=== PATIENT | female | born 1980 | race African-American/Black ===

== ENCOUNTER 2017-10-22 22:40 | Emergency (ER) | payer MEDICAID, OTHER ==
[~2017-10-22] VITALS: Ht 167.6 cm; Wt 63.6 kg
[~2017-10-22 22:40] MED LIST: BUSP5TAB20 PO; FERR-89 PO; FLUO-191 PO; LEVO125 PO; METF500T4 PO; PALI3 PO; VENL-193 PO
[2017-10-22] MEDS ORDERED: QUET50TA22 PO (23:01)
[2017-10-22] MEDS ORDERED: TEMA7.5C17 PO (23:01)
[2017-10-22] MEDS ORDERED: HYDR-4031 PO (23:01)
[2017-10-23 00:01] VITALS: BP 130/78
== END 2017-10-23 00:46 | disposition home or self-care (01) ==
LOC: EMS 22:42
DX: R45.851 Suicidal ideations (principal); F10.239 Alcohol dependence with withdrawal, unspecified; F19.90 Other psychoactive substance use, unspecified, uncomplicated; Z88.0 Allergy status to penicillin
CPT/HCPCS: 99285

== ENCOUNTER 2017-12-22 02:03 | Emergency (ER) | payer MEDICAID, OTHER ==
[~2017-12-22] VITALS: Ht 167.6 cm; Wt 63.6 kg
[~2017-12-22 02:03] MED LIST changes: +BUSP10TA23 PO; -BUSP5TAB20 PO; -FERR-89 PO; -LEVO125 PO; +LEVO125T95 PO; -METF500T4 PO; -PALI3 PO; +QUET50TA22 PO; -VENL-193 PO
[2017-12-22 02:50] LABS: BASOPHILS % (AUTO) 0.5 % (0.0-2.0); EOSINOPHILS % (AUTO) 0.7 % (1.0-6.0); HEMATOCRIT 34.4 % (36-46); HEMOGLOBIN 11.2 g/dL (12.0-16.0); LYMPHOCYTES # (AUTO) 2.3 K/uL (1.0-4.8); LYMPHOCYTES % (AUTO) 32.2 % (22.0-44.0); MEAN CORPUSCULAR HEMOGLOBIN 25.6 pg (26.0-34.0); MEAN CORPUSCULAR HGB CONC 32.6 G/dL (31.0-37.0); MEAN CORPUSCULAR VOLUME 79 fL (80-100); MONOCYTES # (AUTO) 0.5 K/uL (0.1-1.0); MONOCYTES % (AUTO) 6.9 % (2.0-9.0); NEUTROPHILS # (AUTO) 4.3 K/uL (1.8-7.7); NEUTROPHILS % (AUTO) 59.7 % (40.0-70.0); PLATELET COUNT (AUTO) 337 K/uL (150-450); RED BLOOD CELL COUNT(AUTO) 4.38 MIL/uL (4.00-5.20); RED CELL DISTRIBUTION WIDTH 18.1 % (11.5-14.5)
[2017-12-22 02:53] LABS: ANION GAP 12 mmol/L (8-16); CALCIUM, TOTAL 9.4 mg/dL (8.8-10.5); CARBON DIOXIDE 26 mmol/L (22-29); CHLORIDE 106 mmol/L (98-107); CREATININE 0.99 mg/dL (0.60-1.30); GLOMERULAR FILTR. RATE CALC > 60 mL/min (>60); GLUCOSE,RANDOM 110 mg/dL (70-110); POTASSIUM 3.9 mmol/L (3.5-5.1); SODIUM SERUM 144 mmol/L (136-145); UREA NITROGEN, BLOOD 6 mg/dL (7-18)
[2017-12-22 02:58] LABS: AMPHET/METH SCREEN,URINE NEGATIVE (NEGATIVE); BARBITURATE SCREEN, URINE NEGATIVE (NEGATIVE); BENZODIAZEPINES SCREEN,URINE POSITIVE (NEGATIVE); CANNABINOID SCREEN,URINE NEGATIVE (NEGATIVE); COCAINE SCREEN,URINE NEGATIVE (NEGATIVE); METHADONE SCREEN, URINE NEGATIVE (NEGATIVE); OPIATE SCREEN,URINE NEGATIVE (NEGATIVE); PHENCYCLIDINE SCREEN,URINE NEGATIVE (NEGATIVE)
[2017-12-22 02:59] LABS: ALANINE AMINOTRANSFERASE 178 U/L (12-78); ALBUMIN 3.5 g/dL (3.4-5.0); ALKALINE PHOSPHATASE 243 U/L (46-116); ASPARTATE AMINOTRANSFERASE 90 U/L (15-37); BILIRUBIN,TOTAL 0.2 mg/dL (0.1-1.0); TOTAL PROTEIN, SERUM 7.7 g/dL (6.4-8.2)
[2017-12-22] MEDS ORDERED: HALOPERIDOL LACTATE 5 MG/ML VIAL IM ONE (03:30)
[2017-12-22] MEDS ORDERED: DiphenhydrAMINE HCL 50 MG/ML VIAL IM ONE (03:30)
[2017-12-22 08:42] VITALS: BP 135/88
== END 2017-12-22 09:32 | disposition home or self-care (01) ==
LOC: EMS 02:04
DX: F31.9 Bipolar disorder, unspecified (principal); F20.9 Schizophrenia, unspecified; R45.851 Suicidal ideations; K70.30 Alcoholic cirrhosis of liver without ascites; F10.229 Alcohol dependence with intoxication, unspecified; F15.90 Other stimulant use, unspecified, uncomplicated; Y90.7 Blood alcohol level of 200-239 mg/100 ml; Z88.0 Allergy status to penicillin
CPT/HCPCS: 36415; 80053; 80307; 85025; 96372; 99285; G0480; J1200; J1630

== ENCOUNTER 2018-04-24 23:15 | Emergency (ER) | payer OTHER ==
[~2018-04-24] VITALS: Ht 167.6 cm; Wt 72.5 kg
[2018-04-25] MEDS ORDERED: GABA-531 PO ×2 (00:41→17:54)
[2018-04-25] MEDS ORDERED: LAMO100 PO ×2 (00:41→17:54)
[2018-04-25 03:48] VITALS: BP 135/81
[2018-04-25] MEDS ORDERED: MELA1TAB21 PO (17:54)
[2018-04-25] MEDS ORDERED: LEVO125 PO (17:54)
[2018-04-25] MEDS ORDERED: CALC-1038 PO (17:54)
[2018-04-25] MEDS ORDERED: FLUO-191 PO (17:54)
[2018-04-25] MEDS ORDERED: QUET300T2 PO (17:54)
[2018-04-25] MEDS ORDERED: BUSP10TA23 PO (17:54)
[2018-04-25] MEDS ORDERED: NICO-800 TD (17:54)
== END 2018-04-25 03:50 | disposition home or self-care (01) ==
LOC: EMS 23:16
DX: F32.9 Major depressive disorder, single episode, unspecified (principal); F20.9 Schizophrenia, unspecified; F15.10 Other stimulant abuse, uncomplicated; Z79.899 Other long term (current) drug therapy
CPT/HCPCS: 99285

== ENCOUNTER 2018-04-25 15:34 | Inpatient (IN) | payer MEDICAID ==
[~2018-04-25] VITALS: Ht 167.6 cm; Wt 75.8 kg
[~2018-04-25 15:34] MED LIST changes: +GABA-531 PO; +LAMO100 PO
[2018-04-25 16:07] VITALS: BP 130/79
[2018-04-25] MEDS ORDERED: CYANOCOBALAMIN 1,000 MCG/ML VIAL IM ONE (16:30)
[2018-04-25] MEDS ORDERED: ZOLPIDEM TARTRATE 10 MG TABLET PO PRN (16:30)
[2018-04-25] MEDS ORDERED: LORazepam 2 MG TABLET PO PRN (16:30)
[2018-04-25] MEDS ORDERED: HALOPERIDOL 5 MG TABLET PO PRN (16:30)
[2018-04-25] MEDS ORDERED: GuaiFENesin/D-METHORPHAN [SUGAR-FREE] 200-20MG/10 ML SYRUP UDCUP PO PRN (16:30)
[2018-04-25] MEDS ORDERED: ChlordiazePOXIDE HCL 25 MG CAPSULE PO PRN (16:30)
[2018-04-25] MEDS ORDERED: LOPERAMIDE HCL 2 MG CAPSULE PO PRN ×2 (16:30→18:15)
[2018-04-25 16:33] VITALS: BP 120/88
[2018-04-25 17:32] VITALS: BP 120/88
[2018-04-25 17:33] VITALS: BP 110/64
[2018-04-25] MEDS ORDERED: BUSP10TA23 PO (17:54)
[2018-04-25] MEDS ORDERED: LEVO125 PO (17:54)
[2018-04-25] MEDS ORDERED: QUET300T2 PO (17:54)
[2018-04-25] MEDS ORDERED: CALC-1038 PO (17:54)
[2018-04-25] MEDS ORDERED: GABA-531 PO (17:54)
[2018-04-25] MEDS ORDERED: NICO-800 TD (17:54)
[2018-04-25] MEDS ORDERED: LAMO100 PO (17:54)
[2018-04-25] MEDS ORDERED: FLUO-191 PO (17:54)
[2018-04-25] MEDS ORDERED: MELA1TAB21 PO (17:54)
[2018-04-25] MEDS: THIAMINE HCL 100 MG TABLET PO SCH (17:55)
[2018-04-25] MEDS ORDERED: DOCUSATE SODIUM 100 MG CAPSULE PO PRN (18:15)
[2018-04-25] MEDS: BACITRACIN 28.4 GM OINTMENT TP SCH (18:15)
[2018-04-25] MEDS ORDERED: CloNIDine HCL 0.1 MG TABLET PO PRN (18:15)
[2018-04-25] MEDS ORDERED: MAG HYDROX/AL HYDROX/SIMETH ES 30 ML SUSPENSION UDCUP PO PRN (18:15)
[2018-04-25] MEDS ORDERED: MAGNESIUM HYDROXIDE SUSPENSION 30 ML UDCUP PO PRN (18:15)
[2018-04-25] MEDS ORDERED: ONDANSETRON HCL 4 MG TABLET PO PRN (18:15)
[2018-04-25] MEDS ORDERED: ALBUTEROL SULFATE HFA 90 MCG/PUFF 8 GM INHALER IH PRN (18:15)
[2018-04-25] MEDS ORDERED: PETROLATUM,WHITE 71 GM JELLY TP PRN (18:15)
[2018-04-25] MEDS ORDERED: ACETAMINOPHEN 325 MG TABLET PO PRN (18:15)
[2018-04-25 18:33] VITALS: BP 121/77
[2018-04-25 19:33] VITALS: BP 148/88
[2018-04-26] VITALS (8 sets, daily range): BP systolic 118–134; BP diastolic 74–81
[2018-04-26] MEDS ORDERED: ChlordiazePOXIDE HCL 25 MG CAPSULE PO PRN (07:00)
[2018-04-26] MEDS: THIAMINE HCL 100 MG TABLET PO SCH ×2 (08:45→16:15)
[2018-04-26] MEDS: FOLIC ACID 1 MG TABLET PO SCH (08:45)
[2018-04-26] MEDS: MULTIVITAMINS WITH MINERALS, THERAPEUTIC TABLET PO SCH (08:45)
[2018-04-26] MEDS: ChlordiazePOXIDE HCL 25 MG CAPSULE PO SCH ×4 (08:45→21:09)
[2018-04-26] MEDS: NICOTINE 14 MG/24 HOUR PATCH TD SCH (08:46)
[2018-04-26] MEDS: BACITRACIN 28.4 GM OINTMENT TP SCH ×2 (08:46→16:15)
[2018-04-26] MEDS: LamoTRIgine 100 MG TABLET PO SCH (10:24)
[2018-04-26] MEDS: FLUoxetine HCL 20 MG CAPSULE PO SCH (10:24)
[2018-04-26] MEDS: BusPIRone HCL 10 MG TABLET PO SCH ×2 (10:25→21:09)
[2018-04-26] MEDS: CALCIUM OYSTER SHELL 500 MG TABLET PO SCH (16:15)
[2018-04-26] MEDS: IBUPROFEN 400 MG TABLET PO PRN (17:06)
[2018-04-26] MEDS ORDERED: [UNRECOGNIZED DRUG - OTHER] PO SCH (21:00)
[2018-04-26] MEDS: QUEtiapine FUMARATE 100 MG TABLET PO SCH (21:09)
[2018-04-27 04:17] VITALS: BP 128/71
[2018-04-27 04:18] VITALS: BP 128/71
[2018-04-27] MEDS: HydrOXYzine PAMOATE 50 MG CAPSULE PO PRN ×2 (04:20→16:09)
[2018-04-27] MEDS: LEVOTHYROXINE SODIUM 125 MCG TABLET PO SCH (06:40)
[2018-04-27 07:26] LABS: BASOPHILS % (AUTO) 0.9 % (0.0-2.0); HEMATOCRIT 32.5 % (36-46); HEMOGLOBIN 10.4 g/dL (12.0-16.0); LYMPHOCYTES % (AUTO) 34.7 % (22.0-44.0); MEAN CORPUSCULAR HEMOGLOBIN 24.1 pg (26.0-34.0); MEAN CORPUSCULAR HGB CONC 31.9 G/dL (31.0-37.0); MEAN CORPUSCULAR VOLUME 76 fL (80-100); MONOCYTES # (AUTO) 0.3 K/uL (0.1-1.0); MONOCYTES % (AUTO) 5.2 % (2.0-9.0); NEUTROPHILS # (AUTO) 3.4 K/uL (1.8-7.7); NEUTROPHILS % (AUTO) 58.2 % (40.0-70.0); PLATELET COUNT (AUTO) 267 K/uL (150-450); RED BLOOD CELL COUNT(AUTO) 4.31 MIL/uL (4.00-5.20); RED CELL DISTRIBUTION WIDTH 19.5 % (11.5-14.5)
[2018-04-27 07:54] LABS: ALANINE AMINOTRANSFERASE 188 U/L (12-78); ALBUMIN 3.1 g/dL (3.4-5.0); ALKALINE PHOSPHATASE 110 U/L (46-116); ANION GAP 7 mmol/L (8-16); ASPARTATE AMINOTRANSFERASE 90 U/L (15-37); BILIRUBIN,TOTAL 0.3 mg/dL (0.1-1.0); CALCIUM, TOTAL 8.4 mg/dL (8.8-10.5); CARBON DIOXIDE 26 mmol/L (22-29); CHLORIDE 106 mmol/L (98-107); CHOL/HDL RATIO 1.8 (3.9-5.7); CHOLESTEROL 168 mg/dL (131-200); CREATININE 0.83 mg/dL (0.60-1.30); FREE T4 (FREE THYROXINE) 0.61 ng/dL (0.76-1.46); GLOMERULAR FILTR. RATE CALC > 60 mL/min (>60); GLUCOSE,RANDOM 108 mg/dL (70-110); HDL CHOLESTEROL 91 mg/dL (40-60); LDL CHOL (CALC.) 62 mg/dL (0-130); POTASSIUM 3.9 mmol/L (3.5-5.1); SODIUM SERUM 139 mmol/L (136-145); THYROID STIMULATING HORMONE 0.54 uIU/mL (0.36-3.74); TOTAL PROTEIN, SERUM 6.3 g/dL (6.4-8.2); TRIGLYCERIDES 74 mg/dL (15-150); UREA NITROGEN, BLOOD 16 mg/dL (7-18)
[2018-04-27 08:40] VITALS: BP 109/59
[2018-04-27 08:45] VITALS: BP 109/91
[2018-04-27] MEDS: BusPIRone HCL 10 MG TABLET PO SCH ×2 (09:35→20:45)
[2018-04-27] MEDS: NICOTINE 14 MG/24 HOUR PATCH TD SCH (09:35)
[2018-04-27] MEDS: LamoTRIgine 100 MG TABLET PO SCH (09:36)
[2018-04-27] MEDS: FLUoxetine HCL 20 MG CAPSULE PO SCH (09:37)
[2018-04-27] MEDS: CALCIUM OYSTER SHELL 500 MG TABLET PO SCH ×2 (09:37→16:09)
[2018-04-27] MEDS: MULTIVITAMINS WITH MINERALS, THERAPEUTIC TABLET PO SCH (09:37)
[2018-04-27] MEDS: THIAMINE HCL 100 MG TABLET PO SCH ×2 (09:38→16:09)
[2018-04-27] MEDS: FOLIC ACID 1 MG TABLET PO SCH (09:38)
[2018-04-27] MEDS: ChlordiazePOXIDE HCL 25 MG CAPSULE PO SCH ×4 (09:38→20:58)
[2018-04-27] MEDS: BACITRACIN 28.4 GM OINTMENT TP SCH ×2 (10:35→16:10)
[2018-04-27] MEDS: GABAPENTIN 300 MG CAPSULE PO SCH ×3 (10:35→16:09)
[2018-04-27 16:00] VITALS: BP 123/78
[2018-04-27 18:35] VITALS: BP 123/78
[2018-04-27] MEDS: QUEtiapine FUMARATE 100 MG TABLET PO SCH (20:45)
[2018-04-28 05:03] VITALS: BP 135/82
[2018-04-28 05:06] VITALS: BP 134/82
[2018-04-28] MEDS: LEVOTHYROXINE SODIUM 125 MCG TABLET PO SCH (06:36)
[2018-04-28] MEDS: IBUPROFEN 400 MG TABLET PO PRN (06:59)
[2018-04-28] MEDS ORDERED: ChlordiazePOXIDE HCL 10 MG CAPSULE PO PRN (07:00)
[2018-04-28] MEDS: GABAPENTIN 300 MG CAPSULE PO SCH ×2 (08:15→12:35)
[2018-04-28] MEDS: MULTIVITAMINS WITH MINERALS, THERAPEUTIC TABLET PO SCH (08:15)
[2018-04-28] MEDS: FOLIC ACID 1 MG TABLET PO SCH (08:15)
[2018-04-28] MEDS: BusPIRone HCL 10 MG TABLET PO SCH (08:15)
[2018-04-28] MEDS: CALCIUM OYSTER SHELL 500 MG TABLET PO SCH (08:15)
[2018-04-28] MEDS: HydrOXYzine PAMOATE 50 MG CAPSULE PO PRN (08:16)
[2018-04-28] MEDS: LamoTRIgine 100 MG TABLET PO SCH (08:16)
[2018-04-28] MEDS: ChlordiazePOXIDE HCL 10 MG CAPSULE PO SCH ×2 (08:16→12:34)
[2018-04-28] MEDS: NICOTINE 14 MG/24 HOUR PATCH TD SCH (08:17)
[2018-04-28] MEDS: BACITRACIN 28.4 GM OINTMENT TP SCH (08:17)
[2018-04-28] MEDS: THIAMINE HCL 100 MG TABLET PO SCH (08:17)
[2018-04-28] MEDS: FLUoxetine HCL 20 MG CAPSULE PO SCH (08:18)
[2018-04-28 08:22] VITALS: BP 110/58
[2018-04-28] MEDS ORDERED: MULT-1239 PO (09:23)
[2018-04-29] MEDS ORDERED: ChlordiazePOXIDE HCL 10 MG CAPSULE PO PRN (07:00)
== END 2018-04-28 13:15 | disposition home or self-care (01) | DRG 750 ==
LOC: B3A 16:35
PROVIDERS: ADMIT Psychiatry & Neurology Child & Adolescent Psychiatry; ATTEND Psychiatry & Neurology Child & Adolescent Psychiatry
DX: F25.1 Schizoaffective disorder, depressive type (principal); R45.851 Suicidal ideations; G40.909 Epilepsy, unspecified, not intractable, without status epilepticus; F32.9 Major depressive disorder, single episode, unspecified; F10.10 Alcohol abuse, uncomplicated; F41.9 Anxiety disorder, unspecified; G89.29 Other chronic pain; E03.9 Hypothyroidism, unspecified; Z71.51 Drug abuse counseling and surveillance of drug abuser; Z88.0 Allergy status to penicillin; Z79.899 Other long term (current) drug therapy; Z81.8 Family history of other mental and behavioral disorders; Z83.3 Family history of diabetes mellitus; Z91.5 Personal history of self-harm
CPT/HCPCS: 83036; 84439; 84443; J3420

== ENCOUNTER 2021-07-28 10:45 | Emergency (ER) | payer MEDICAID, OTHER ==
[~2021-07-28] VITALS: Ht 167.6 cm; Wt 68.2 kg
[~2021-07-28 10:45] MED LIST changes: +CALC-1038 PO; +GABA-1181 PO; -GABA-531 PO; +LEVO125 PO; -LEVO125T95 PO; +MULT-1239 PO; +QUET300T2 PO; -QUET50TA22 PO
[2021-07-28 10:54] VITALS: BP 147/90
== END 2021-07-28 12:33 | disposition left against medical advice (07) ==
LOC: EMS 10:45
DX: M25.561 Pain in right knee (principal); F31.9 Bipolar disorder, unspecified; F20.9 Schizophrenia, unspecified
CPT/HCPCS: 99281; Z7502

== ENCOUNTER 2023-10-17 13:04 | Inpatient (IN) | payer MEDICAID, OTHER ==
[~2023-10-17] VITALS: Ht 152.4 cm; Wt 73.0 kg
[~2023-10-17 13:04] MED LIST changes: -CALC-1038 PO; +FLUO-177 PO; -FLUO-191 PO; +LAMO-24 PO; -LAMO100 PO
[2023-10-17 14:05] LABS: BASOPHILS % (AUTO) 0.4 % (0.0-2.0); EOSINOPHILS % (AUTO) 14.7 % (1.0-6.0); HEMOGLOBIN 12.3 g/dL (12.0-16.0); LYMPHOCYTES # (AUTO) 2.2 K/uL (1.0-4.8); LYMPHOCYTES % (AUTO) 22.1 % (22.0-44.0); MEAN CORPUSCULAR HEMOGLOBIN 28.3 pg (26.0-34.0); MEAN CORPUSCULAR HGB CONC 33.2 G/dL (31.0-37.0); MEAN CORPUSCULAR VOLUME 85 fL (80-100); MONOCYTES # (AUTO) 0.4 K/uL (0.1-1.0); MONOCYTES % (AUTO) 4.2 % (2.0-9.0); NEUTROPHILS # (AUTO) 5.8 K/uL (1.8-7.7); NEUTROPHILS % (AUTO) 58.6 % (40.0-70.0); PLATELET COUNT (AUTO) 173 K/uL (150-450); RED BLOOD CELL COUNT(AUTO) 4.35 MIL/uL (4.00-5.20); RED CELL DISTRIBUTION WIDTH 15.3 % (11.5-14.5); WHITE BLOOD COUNT (AUTO) 9.8 K/uL (4.5-11.0)
[2023-10-17 14:16] LABS: ALCOHOL, BLOOD (SERUM) < 3 mg/dL (0-10)
[2023-10-17 15:06] LABS: ANION GAP 13 mmol/L (8-16); CARBON DIOXIDE 25 mmol/L (22-29); CHLORIDE 103 mmol/L (98-107); CREATININE 0.73 mg/dL (0.60-1.30); GLOMERULAR FILTR. RATE CALC > 60 mL/min (>60); GLUCOSE,RANDOM 93 mg/dL (70-110); POTASSIUM 3.8 mmol/L (3.5-5.1); SODIUM SERUM 141 mmol/L (136-145); UREA NITROGEN, BLOOD 7 mg/dL (7-18)
[2023-10-17 15:12] LABS: ALANINE AMINOTRANSFERASE 39 U/L (12-78); ALBUMIN 3.8 g/dL (3.4-5.0); ALKALINE PHOSPHATASE 90 U/L (46-116); ASPARTATE AMINOTRANSFERASE 34 U/L (15-37); BILIRUBIN,TOTAL 0.4 mg/dL (0.1-1.0); CALCIUM, TOTAL 9.2 mg/dL (8.8-10.5); TOTAL PROTEIN, SERUM 7.2 g/dL (6.4-8.2)
[2023-10-17] MEDS ORDERED: LORazepam 2 MG TABLET PO PRN (16:30)
[2023-10-17] MEDS ORDERED: HALOPERIDOL 5 MG TABLET PO PRN (16:30)
[2023-10-17 17:18] LABS: COVID AG,FIA SOURCE NASAL SWAB
[2023-10-17 17:46] LABS: SARS-COV2 (COVID) ANTIGEN,FIA Positive (Negative)
[2023-10-17 18:46] LABS: APPEARANCE,URINE HAZY (CLEAR); BILIRUBIN,URINE NEGATIVE (NEGATIVE); COLOR,URINE YELLOW (YELLOW); GLUCOSE, URINE (UA) NEGATIVE (NEGATIVE); KETONES,URINE NEGATIVE (NEGATIVE); LEUKOCYTE ESTERASE ,URINE LARGE (NEGATIVE); OCCULT BLOOD,URINE MODERATE (NEGATIVE); PROTEIN,URINE 30-70 mg/dL (NEGATIVE); SPECIFIC GRAVITIY, URINE 1.016 (1.003-1.030); UROBILINOGEN,URINE <=1.0 mg/dL (<=1.0)
[2023-10-17 18:54] LABS: ALCOHOL, URINE DRUG SCREEN NEGATIVE (NEGATIVE); AMPHET/METH SCREEN,URINE NEGATIVE (NEGATIVE); BARBITURATE SCREEN, URINE NEGATIVE (NEGATIVE); BENZODIAZEPINES SCREEN,URINE NEGATIVE (NEGATIVE); CANNABINOID SCREEN,URINE POSITIVE (NEGATIVE); COCAINE SCREEN,URINE NEGATIVE (NEGATIVE); METHADONE SCREEN, URINE NEGATIVE (NEGATIVE); OPIATE SCREEN,URINE NEGATIVE (NEGATIVE); PHENCYCLIDINE SCREEN,URINE NEGATIVE (NEGATIVE)
[2023-10-17 18:57] LABS: BACTERIA,URINE Many /HPF (None Seen); NITRATE,URINE POSITIVE (NEGATIVE); SQUAMOUS EPITHELIAL CELL,UR Many /LPF (None Seen); WBC,URINE 51-100 /HPF (0-5)
[2023-10-17] MEDS: ZOLPIDEM TARTRATE 10 MG TABLET PO PRN (22:13)
[2023-10-17 22:28] VITALS: BP 115/72; PULSE 67; RESP 19; TEMP 97.8; O2SAT 99
[2023-10-18] MEDS ORDERED: INFLUENZA VIRUS VACCINE QVS 2023-24 (6MO+)/PF 60 MCG/0.5 ML SYRINGE IM. ONE (02:00)
[2023-10-18] MEDS ORDERED: IBUPROFEN 600 MG TABLET PO PRN (05:45)
[2023-10-18] MEDS ORDERED: BENZOCAINE/MENTHOL LOZENGE PO PRN (05:45)
[2023-10-18] MEDS ORDERED: DOCUSATE SODIUM 100 MG CAPSULE PO PRN (05:45)
[2023-10-18] MEDS ORDERED: ALBUTEROL SULFATE HFA 90 MCG/PUFF 8 GM INHALER IH PRN (05:45)
[2023-10-18] MEDS ORDERED: MAGNESIUM HYDROXIDE SUSPENSION 30 ML UDCUP PO PRN (05:45)
[2023-10-18] MEDS ORDERED: MAG HYDROX/ALUMINUM HYD/SIMETH ES 30 ML SUSPENSION UDCUP PO PRN (05:45)
[2023-10-18] MEDS ORDERED: ONDANSETRON HCL 4 MG TABLET PO PRN (05:45)
[2023-10-18] MEDS ORDERED: CloNIDine HCL 0.1 MG TABLET PO PRN (05:45)
[2023-10-18] MEDS ORDERED: BACITRACIN 28 GM OINTMENT TP PRN (05:45)
[2023-10-18] MEDS ORDERED: OMEPRAZOLE 20 MG CAPSULE PO PRN (05:45)
[2023-10-18] MEDS ORDERED: PETROLATUM,WHITE 28 GM JELLY TP PRN (05:45)
[2023-10-18] MEDS ORDERED: ACETAMINOPHEN 325 MG TABLET PO PRN (05:45)
[2023-10-18] MEDS ORDERED: LOPERAMIDE HCL 2 MG CAPSULE PO PRN (05:45)
[2023-10-18] MEDS: LEVOTHYROXINE SODIUM 125 MCG TABLET PO SCH (07:09)
[2023-10-18 08:25] VITALS: BP 119/68; PULSE 72; RESP 18; TEMP 98.7
[2023-10-18] MEDS: NITROFURANTOIN MONOHYD/M-CRYST 100 MG CAPSULE [MACROBID] PO SCH ×2 (09:53→18:12)
[2023-10-18] MEDS: MULTIVITAMINS WITH MINERALS, THERAPEUTIC TABLET PO SCH (09:53)
[2023-10-18] MEDS: GABAPENTIN 300 MG CAPSULE PO SCH ×3 (09:54→18:13)
[2023-10-18 20:30] VITALS: BP 127/78; PULSE 75; RESP 18; TEMP 98.1
[2023-10-18] MEDS ORDERED: QUEtiapine FUMARATE 200 MG TABLET PO SCH (21:00)
[2023-10-18] MEDS: ZOLPIDEM TARTRATE 10 MG TABLET PO PRN (21:09)
[2023-10-19] MEDS: LEVOTHYROXINE SODIUM 125 MCG TABLET PO SCH (06:26)
[2023-10-19] MEDS ORDERED: FLUoxetine HCL 20 MG CAPSULE PO SCH (09:00)
[2023-10-19 09:06] VITALS: BP 115/77; PULSE 86; RESP 18; TEMP 98
[2023-10-19] MEDS: NITROFURANTOIN MONOHYD/M-CRYST 100 MG CAPSULE [MACROBID] PO SCH ×2 (09:38→16:47)
[2023-10-19] MEDS: BusPIRone HCL 10 MG TABLET PO SCH ×3 (09:38→16:47)
[2023-10-19] MEDS: GABAPENTIN 300 MG CAPSULE PO SCH ×3 (09:40→16:47)
[2023-10-19] MEDS: MULTIVITAMINS WITH MINERALS, THERAPEUTIC TABLET PO SCH (09:40)
[2023-10-19] MEDS ORDERED: NITR-75 PO (14:51)
[2023-10-19] MEDS ORDERED: QUET200T PO (14:51)
== END 2023-10-19 19:56 | disposition home or self-care (01) | DRG 750 ==
LOC: EMS 13:05 → 3EI 17:58
PROVIDERS: ADMIT Psychiatry & Neurology Psychiatry; ATTEND Psychiatry & Neurology Psychiatry
DX: F25.0 Schizoaffective disorder, bipolar type (principal); U07.1 COVID-19; E66.9 Obesity, unspecified; F41.9 Anxiety disorder, unspecified; G47.00 Insomnia, unspecified; I10 Essential (primary) hypertension; K59.00 Constipation, unspecified; E78.5 Hyperlipidemia, unspecified; E89.0 Postprocedural hypothyroidism; F17.210 Nicotine dependence, cigarettes, uncomplicated; N39.0 Urinary tract infection, site not specified; Z78.9 Other specified health status; Z85.819 Personal history of malignant neoplasm of unspecified site of lip, oral cavity, and pharynx; Z98.84 Bariatric surgery status; Z79.899 Other long term (current) drug therapy
CPT/HCPCS: 80053; 80307; 81001; 84703; 85025; 87086; 87186; 99285; G0480